=== PATIENT | male | born 1935 | race Caucasian/White ===

== ENCOUNTER → 2018-03-18 15:19 | Outpatient (CLI) | payer MEDICARE, SELFPAY ==
--- NOTE | 2018-03-18 | DI.RAD.S_ITS ---
PROCEDURE: XR CHEST 2V INDICATIONS: BRONCHITIS TECHNIQUE: 2 views of the chest were acquired. COMPARISON: [facility], MR, L-SPINE WITHOUT CONTRAST, 01/25/2012, 9:07. [facility], CT, CT CHEST WITHOUT CONTRAST, 08/29/2017, 14:25. [facility], CR, CHEST 2 VIEW, 10/04/2008, 8:12. [facility], CR, CHEST 2 VIEW, 08/25/2010, 10:05. [facility], CR, XR CHEST 2 VIEWS, 06/17/2017, 17:01. FINDINGS: Surgical changes and devices: None. Lungs and pleura: Left basilar opacities may be atelectasis or pneumonia. No pleural effusions or pneumothorax. Mediastinum: Mediastinal contours are normal. Heart size is normal. Bones and chest wall: No suspicious bony abnormalities. Soft tissues appear unremarkable. IMPRESSION: Left basilar opacities may be atelectasis or pneumonia. Recommend followup to resolution. Dictated by: Araceli Anton M.D. on 03/18/2018 at 16:48 Approved by: Araceli Anton M.D. on 03/18/2018 at 16:51
== END ==
PROVIDERS: PCP Family Medicine; Visit Provider Nurse Practitioner Family
DX: J40 Bronchitis, not specified as acute or chronic (principal)
CPT/HCPCS: 71046

== ENCOUNTER → 2018-04-10 09:34 | Outpatient (CLI) | payer MEDICARE, SELFPAY ==
--- NOTE | 2018-04-10 | DI.CT.S_ITS ---
PROCEDURE: CT CHEST WO CON INDICATIONS: FOLLOW UP LEFT LOWER LUNG NODULE TECHNIQUE: Noncontrast 2.0-2.5 mm thick sections acquired from the pulmonary apices to the posterior costophrenic angles. 7 mm thick coronal and sagittal MIP reformats were then acquired. A low radiation dose technique was utilized. COMPARISON: [facility], CT, CT CHEST WITHOUT CONTRAST, 08/29/2017, 14:25. FINDINGS: Image quality: Diagnostic, given the low radiation dose technique. Lungs and pleura: There is a Dorsey within it and in the left lower lobe, unchanged since the last exam. There is left basilar atelectasis. Mediastinum: Heart size is normal. No pericardial effusion. Moderate coronary artery and aortic calcifications consistent with atherosclerosis. No mediastinal adenopathy by size criteria. Small mediastinal lymph nodes are likely reactive. Thoracic aorta and central pulmonary arteries are normal in size. Esophagus is normal in caliber. No hiatal hernia. Bones and chest wall: No suspicious bony lesions. No vertebral body compression fractures. No axillary or supraclavicular adenopathy by size criteria. Thyroid gland is normal. Abdomen: There is a small 8 mm indeterminate hepatic hypodensity in the posterior segment of the right hepatic lobe, unchanged. Visualized upper abdomen solid organs and bowel loops appear normal in the absence of contrast. IMPRESSION: 1. Stable 4 mm left lower lobe lung nodule. 2. Stable 8 mm indeterminate hepatic hypodensity. Fleischner Society criteria for SOLID lung nodule followup. Nodule size (mm)Low-risk patientHigh-risk patient<6 (single or multiple)No routine followup.Optional CT at 12 months. 6-8 (single or multiple)CT at 6-12 months, then optional CT at 18-24 mo.CT at 6-12 months, then CT at 18-24 months. >8 (single)CT at 3 months, PET-CT, or biopsy. Same as for low-risk pts. >8 (multiple)CT at 3-6 months, then optional CT at 18-24 mo.CT at 3-6 months, then CT at 18-24 months. Recommendations do not apply to lung cancer screening, patients with immunosuppression, or patients with known primary cancer. Dictated by: Araceli Anton M.D. on 04/10/2018 at 10:06 Approved by: Araceli Anton M.D. on 04/10/2018 at 10:38
== END ==
PROVIDERS: PCP Internal Medicine; Visit Provider Nurse Practitioner Family
DX: R91.1 Solitary pulmonary nodule (principal); I25.10 Atherosclerotic heart disease of native coronary artery without angina pectoris; I70.0 Atherosclerosis of aorta
CPT/HCPCS: 71250

== ENCOUNTER → 2018-05-16 08:52 | Outpatient (CLI) | payer MEDICARE, SELFPAY ==
[2018-05-16 10:28] LABS: Alanine Aminotransferase 24 IU/L (21-72); Albumin 4.5 g/dL (3.5-5.0); Albumin Globulin Ratio 1.4 (1.0-2.8); Alkaline Phosphatase 60 U/L (38-126); Aspartate Aminotransferase 20 IU/L (17-59); BUN Creatinine Ratio 18.3 (6-22); Bilirubin Total 0.5 mg/dL (0.2-1.3); Blood Urea Nitrogen 22 mg/dL (9-20); Calcium 9.4 mg/dL (8.4-10.2); Carbon Dioxide 28 mmol/L (22-32); Chloride 99 mmol/L (98-107); Cholesterol 171 mg/dL (140-199); Estimated Glomerular Filt Rate 58.3 mL/min (>60); Globulin 3.2 g/dL (1.7-4.1); Glucose 106 mg/dL (80-110); HDL Cholesterol 44 mg/dL (40-60); HEMOLYSIS < 15 (0-50); Hemoglobin A1C% w Est Avg Glu 5.7 % (4.0-6.0); LDL Cholesterol Calculated 95 mg/dL (<100); Potassium 3.8 mmol/L (3.4-5.1); Sodium 140 mmol/L (137-145); Total Protein 7.7 g/dL (6.3-8.2); Triglycerides 161 mg/dL (35-150)
[2018-05-16 10:34] LABS: B Type Natriuretic Peptide 109 (<100)
[2018-05-16 11:40] LABS: Vitamin D 25 Hydroxy (D3) 53.3 ng/mL (30.0-100.0)
== END ==
PROVIDERS: PCP Internal Medicine; Visit Provider Nurse Practitioner Family
DX: E55.9 Vitamin D deficiency, unspecified (principal); E78.5 Hyperlipidemia, unspecified; I10 Essential (primary) hypertension; R73.01 Impaired fasting glucose; R06.00 Dyspnea, unspecified
CPT/HCPCS: 36415; 80053; 80061; 82306; 83036; 83880

== ENCOUNTER → 2018-06-30 14:34 | Outpatient (CLI) | payer MEDICARE, SELFPAY ==
--- NOTE | 2018-06-30 | DI.RAD.S_ITS ---
PROCEDURE: XR CHEST 2V INDICATIONS: COUGH,SOB TECHNIQUE: 2 views of the chest were acquired. COMPARISON: [facility], CR, XR CHEST 2V, 03/18/2018, 15:33. FINDINGS: Surgical changes and devices: None. Lungs and pleura: Interval decrease in strand-like density in the retrocardiac region.. No pleural effusions or pneumothorax. Mediastinum: Mediastinal contours are normal. Heart size is normal. Bones and chest wall: No suspicious bony abnormalities. Soft tissues appear unremarkable. IMPRESSION: Interval improvement in the left medial lung base the strand-like density suggesting resolution of pneumonia and/or atelectasis. Dictated by: Niyah Jackson M.D. on 06/30/2018 at 15:36 Approved by: Niyah Jackson M.D. on 06/30/2018 at 15:38
== END ==
PROVIDERS: PCP Internal Medicine; Visit Provider Internal Medicine
DX: R05 Cough (principal); R06.02 Shortness of breath
CPT/HCPCS: 71046

== ENCOUNTER → 2018-08-12 10:38 | Outpatient (CLI) | payer MEDICARE, SELFPAY ==
--- NOTE | 2018-08-12 10:40 | DI.RAD.S_ITS ---
PROCEDURE: XR CHEST 2V INDICATIONS: COUGH TECHNIQUE: 2 views of the chest were acquired. COMPARISON: [facility], CR, XR CHEST 2V, 06/30/2018, 14:38. FINDINGS: Surgical changes and devices: None. Lungs and pleura: Lungs are clear. No pleural effusions or pneumothorax. Mediastinum: Mediastinal contours are normal. Heart size is normal. Bones and chest wall: No suspicious bony abnormalities. Soft tissues appear unremarkable. IMPRESSION: No acute disease Dictated by: Stephen Wright M.D. on 08/12/2018 at 12:24 Approved by: Stephen Wright M.D. on 08/12/2018 at 12:25
== END ==
PROVIDERS: PCP Internal Medicine; Visit Provider Internal Medicine
DX: R05 Cough (principal)
CPT/HCPCS: 71046

== ENCOUNTER → 2018-12-22 07:43 | Outpatient (CLI) | payer MEDICARE, SELFPAY ==
--- NOTE | 2018-12-22 09:00 | PM.TREADMILL ---
Cardiac Stress Test Report Referral & Results Date Patient Seen: 12/22/18 Requesting provider: Lai Joy Indication: Chest discomfort Rest ECG: Unremarkable Procedure Note: Today following both written and verbal informed consent the patient was exercised according to a standard Derian protocol patient went for a total of 3 minutes 37 seconds, all at Derian protocol stage I, achieving a maximum heart rate of 114 maximum systolic blood pressure of 160. This is approximately 4.6 METS. Exercise was terminated at this point because of chest pain and targets were met. Patient was also given Cardiolite through a previously started Hep-Lock IV by the diagnostic imaging staff approximately 1 minute prior to the cessation of exercise. With exercise patient did have some upsloping ST segment depression in leads V5 and V6 as well as some drooping or slightly upsloping ST segment changes in leads II, III, and aVf. Later in recovery the ST segments in leads V5 V6 became clearly downsloping as did the leads II, III, and aVf. Patient's exercise capacity difficult to ascertain as he is older than the usual scale but appears to be approximately 30% impaired on the sedentary scale Blood pressure dropped in recovery but remained stable at 1 20/80 or so Patient had rare PACs as well Impression: Ischemic changes as above. Perfusion imaging report will be separate Please note: Actual ECG tracings can be found in the PACS system.
--- NOTE | 2018-12-23 15:16 | DI.NM.S_ITS ---
DATE OF SERVICE: 12/22/2018 PROCEDURE PERFORMED: Exercise treadmill stress and rest myocardial perfusion imaging study with gating to assess ejection fraction and regional wall motion. ORDERING PROVIDER: Lai Joy MD INDICATIONS: The patient is an 83-year-old male with exertional chest pain. EXERCISE TREADMILL TESTING: The patient was able to exercise for a total of 3 minutes 37 seconds on a standard Derian protocol suggesting moderate-severely reduced exercise capacity with an LAURA of +30% on the sedentary scale. He had a slightly blunted heart rate response to exercise, achieving a maximum heart rate of 114 bpm (82% of his predicted maximum). He had a normal blood pressure response. He developed 5/10 chest discomfort with exercise requiring him to stop. His resting ECG shows mild nonspecific ST-segment depressions which become accentuated with stress, initially upsloping then becoming flat and ultimately downsloping in late recovery of around 1-2 mm. There were no arrhythmias. At 2 minutes 48 seconds of exercise, at heart rate of 114 bpm, 26.9 mCi of technetium-99 Myoview was injected, and the patient was imaged 15 minutes later using a gated SPECT acquisition protocol. He returned the following day and was reinjected with an additional 25.2 mCi of technetium-99 Myoview and was imaged 30 minutes later, again using a gated SPECT acquisition protocol. FINDINGS: 1. Raw Data: There is fair myocardial tracer uptake. There is increased lung uptake relative to myocardial uptake with a lung/heart ratio of 0.51, which can be a sign of pulmonary congestion, possibly reflecting multivessel disease. In addition, the TID ratio is mildly elevated at 1.22 with visual confirmation of post stress dilatation compared to the resting images. 2. Quantitative Gated SPECT: Post stress ejection fraction is estimated at 53% with mild global hypokinesis but more significant in the [id number] anterior wall and apex as well as the mid and distal inferolateral wall. The resting ejection fraction is 63% with significant improvement in both areas of hypokinesis. The resting end-diastolic volume is 123 mL. 3. Myocardial Perfusion Imaging: Post stress supine images show a severe perfusion defect of the mid and distal inferolateral wall and inferior wall extending out to the apex which persists on the prone images. This defect significantly improves on the resting images, although a small perfusion defect persists in the distal portion of the inferolateral wall and apex. In addition, there is a moderate perfusion defect involving the mid and distal anterior wall and septum, more severe distally, which again, persists on the prone images This defect also improves but does not completely resolve on the resting images which show a significant perfusion defect only in the distal anterior wall and apex and periapical segments. IMPRESSION: 1. Abnormal myocardial perfusion study. 2. Kermwzrm-je-xgxzp predominately reversible mid and distal anterior, septal, and anteroapical perfusion defect and a more completely reversible mid and distal inferior defect that is partially fixed distally and at the apex. 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 3. Mildly reduced left ventricular systolic function with mildly reversible wall motion abnormalities in the distributions described above, consistent with significant ischemia. The increased lung/heart ratio and elevated TID support a probable global ischemia. 4. Moderate-severely reduced exercise capacity with angina and moderate ST- segment shifts consistent with ischemia. Dr. Joy was contacted with these results. Ryan Arguelles - YOLA/yaz/ doc#: [id number]/job#: [id number] dd: 12/23/2018 12:37:00 dt: 12/23/2018 14:56:00 DICTATING MD/COPIES TO: Boby Uriarte MD COPIES MNE: MONO
== END ==
PROVIDERS: PCP Internal Medicine; Visit Provider Internal Medicine
DX: R07.89 Other chest pain (principal); R94.39 Abnormal result of other cardiovascular function study; I20.8 Other forms of angina pectoris
CPT/HCPCS: 78452; 93016; 93017; 93018; A9502

== ENCOUNTER → 2019-10-14 09:39 | Outpatient (CLI) | payer MEDICARE, SELFPAY ==
[2019-10-14 11:22] LABS: Add Manual Diff / Slide Review NO; Basophils Absolute Auto 100 /uL (0-100); Basophils Percent Auto 0.7 % (0-2); Eosinophils Absolute Auto 700 /uL (0-450); Eosinophils Percent Auto 7.2 % (2-4); Lymphocytes Absolute Auto 1700 /uL (1100-4500); Mean Corpuscular HGB Conc 35.1 % (30-36); Mean Corpuscular Hemoglobin 30.7 PG (26-34); Mean Corpuscular Volume 87.3 fL (80-100); Monocytes Absolute Auto 1100 /uL (0-900); Monocytes Percent Auto 10.9 % (3-14); Neutrophils Absolute Auto 6500 /uL (1500-7000); Neutrophils Percent Auto 64.2 % (50-75); Platelet Count 224 X10^3/uL (150-400); Red Blood Cell Count 4.24 X10^6/uL (4.5-5.9); Red Cell Distribution Width 13.3 % (11.6-14.8); White Blood Cell Count 10.2 X10^3/uL (4.5-11.0)
[2019-10-14 11:55] LABS: Alanine Aminotransferase 25 IU/L (<50); Albumin 4.6 g/dL (3.5-5.0); Albumin Globulin Ratio 1.5 (1.0-2.8); Alkaline Phosphatase 75 U/L (38-126); Aspartate Aminotransferase 26 IU/L (17-59); Blood Urea Nitrogen 22 mg/dL (9-20); Calcium 9.2 mg/dL (8.4-10.2); Carbon Dioxide 25 mmol/L (22-32); Chloride 100 mmol/L (98-107); Cholesterol 132 mg/dL (140-199); Estimated Glomerular Filt Rate 45.9 mL/min (>60); Glucose 96 mg/dL (80-110); HDL Cholesterol 40 mg/dL (40-60); HEMOLYSIS < 15 (0-50); LDL Cholesterol Calculated 65 mg/dL (<100); Potassium 4.4 mmol/L (3.4-5.1); Sodium 136 mmol/L (137-145); Total Protein 7.6 g/dL (6.3-8.2); Triglycerides 133 mg/dL (35-150)
== END ==
PROVIDERS: PCP Internal Medicine; Referring Provider Internal Medicine; Visit Provider Internal Medicine
DX: I10 Essential (primary) hypertension (principal); E78.2 Mixed hyperlipidemia; J30.1 Allergic rhinitis due to pollen
CPT/HCPCS: 36415; 80053; 80061; 85025

== ENCOUNTER → 2019-12-11 08:35 | Outpatient (CLI) | payer MEDICARE, SELFPAY ==
[2019-12-11 09:58] LABS: Add Manual Diff / Slide Review NO; Basophils Absolute Auto 100 /uL (0-100); Basophils Percent Auto 0.8 % (0-2); Eosinophils Absolute Auto 600 /uL (0-450); Eosinophils Percent Auto 6.8 % (2-4); Hematocrit 36.9 % (41-53); Hemoglobin 12.7 g/dL (13.5-17.5); Lymphocytes Absolute Auto 1700 /uL (1100-4500); Lymphocytes Percent Auto 18.2 % (25-40); Mean Corpuscular HGB Conc 34.5 % (30-36); Mean Corpuscular Hemoglobin 30.4 PG (26-34); Monocytes Absolute Auto 900 /uL (0-900); Monocytes Percent Auto 9.2 % (3-14); Neutrophils Absolute Auto 6000 /uL (1500-7000); Platelet Count 249 X10^3/uL (150-400); Red Blood Cell Count 4.19 X10^6/uL (4.5-5.9); Red Cell Distribution Width 12.8 % (11.6-14.8); White Blood Cell Count 9.3 X10^3/uL (4.5-11.0)
[2019-12-11 10:15] LABS: HEMOLYSIS < 15 (0-50); Iron 91 ug/dL (49-181)
[2019-12-11 10:19] LABS: BUN Creatinine Ratio 21.5 (6-22); Blood Urea Nitrogen 29 mg/dL (9-20); Calcium 9.3 mg/dL (8.4-10.2); Carbon Dioxide 29 mmol/L (22-32); Chloride 102 mmol/L (98-107); Estimated Glomerular Filt Rate 50.6 mL/min (>60); Glucose 96 mg/dL (80-110); HEMOLYSIS < 15 (0-50); Potassium 4.8 mmol/L (3.4-5.1); Sodium 137 mmol/L (137-145)
[2019-12-11 10:26] LABS: Percent Iron Saturation 25 % (20-50); Total Iron Binding Capacity 369 ug/dL (261-462); Transferrin 289 mg/dL (206-381)
== END ==
PROVIDERS: PCP Internal Medicine; Referring Provider Internal Medicine; Visit Provider Internal Medicine
DX: I10 Essential (primary) hypertension (principal)
CPT/HCPCS: 36415; 80048; 83540; 83550; 85025

== ENCOUNTER → 2022-04-13 11:19 | Outpatient (CLI) | payer MEDICARE, SELFPAY ==
--- NOTE | 2022-04-13 | DI.RAD.S_ITS ---
PROCEDURE: XR LUMBAR SPINE 2-3V INDICATIONS: LOW BACK PAIN TECHNIQUE: 3 views of the lumbar spine were acquired. COMPARISON: None. FINDINGS: Bones: 5 [id number] vertebrae are present. No vertebral body compression fractures. No suspicious bony lesions. Generalized decrease in osseous mineralization noted. Disc space narrowing and sclerotic facet joints present throughout the exam, particularly in the lower lumbar spine, resulting in grade 1 anterior spondylolisthesis at L4-5. Soft tissues: Calcified atherosclerosis in the aorta associated with 4.6 cm abdominal aortic aneurysm IMPRESSION: Infrarenal abdominal aortic aneurysm should be further evaluated with CT abdomen and pelvis with contrast. Multilevel degenerative disc disease and arthropathy Approved by: Sandeep Mendosa M.D. on 04/13/2022 at 16:37
== END ==
PROVIDERS: PCP Student in an Organized Health Care Education/Training Program; Referring Provider Student in an Organized Health Care Education/Training Program; Visit Provider Student in an Organized Health Care Education/Training Program
DX: I71.43 Infrarenal abdominal aortic aneurysm, without rupture (principal); M47.816 Spondylosis without myelopathy or radiculopathy, lumbar region; M51.36 Other intervertebral disc degeneration, lumbar region; M54.50 Low back pain, unspecified; G89.29 Other chronic pain; Z98.890 Other specified postprocedural states
CPT/HCPCS: 72100

== ENCOUNTER → 2022-04-20 08:34 | Outpatient (CLI) | payer OTHER, MEDICARE, SELFPAY ==
--- NOTE | 2022-04-20 | DI.CT.S_ITS ---
PROCEDURE: CT ABDOMEN PELVIS W CON INDICATIONS: Infrarenal abdominal aortic aneurysm, without rupture TECHNIQUE: After the administration of intravenous contrast, axial sections acquired from the lung bases to the pubic symphysis. Coronal and sagittal reformats were performed. For radiation dose reduction, the following was used: automated exposure control, adjustment of mA and/or kV according to patient size. COMPARISON: [facility], CT, CT CHEST ABDOMEN PELVIS WITH CONTRAST, 08/16/2016, 12:33. [facility], CR, XR LUMBAR SPINE 2-3V, 04/13/2022, 12:28. FINDINGS: Image quality: Adequate Lung bases: No pleural effusion ABDOMEN: Liver: Redemonstrated small hypodensity at segment 5/6, nonspecific, possible cyst or hemangioma. Gallbladder: Unremarkable. Biliary ducts: Unremarkable. Pancreas: Unremarkable. Spleen: Unremarkable. Adrenal Glands: Unremarkable. Kidneys and Ureters: No hydronephrosis. Cortical scarring at the mid right kidney as before. Stomach and Bowel: No bowel obstruction. Mild predominantly sigmoid colonic diverticulosis without evidence of acute diverticulitis. Peritoneum: No abnormal intraperitoneal fluid. No free air. Abdominal Nodes: No retroperitoneal or mesenteric adenopathy by size criteria. Vessels: Fusiform infrarenal abdominal aortic aneurysm measuring up to 3.4 centimeters, without extension into the iliac arteries. Previously the aorta measured 3.1 centimeters remeasured similarly on the 2017 exam. PELVIS: Pelvic Organs: Prostate gland and seminal vesicles not visualized, may be surgically absent Bladder: Unremarkable. Pelvic Nodes: No enlarged lymph nodes. Bones: Multilevel degenerative change of the visualized spine. IMPRESSION: Infrarenal abdominal aortic aneurysm measuring up to 3.4 centimeters, slightly increased since 2017. Dictated by: Catrachito Villegas M.D. on 04/20/2022 at 9:04 Approved by: Catrachito Villegas M.D. on 04/20/2022 at 9:32
== END ==
PROVIDERS: PCP Student in an Organized Health Care Education/Training Program; Referring Provider Student in an Organized Health Care Education/Training Program; Visit Provider Student in an Organized Health Care Education/Training Program
DX: I71.43 Infrarenal abdominal aortic aneurysm, without rupture (principal); K57.20 Diverticulitis of large intestine with perforation and abscess without bleeding
CPT/HCPCS: 74177; Q9967

== ENCOUNTER → 2023-07-04 16:33 | Outpatient (CLI) | payer MEDICARE, SELFPAY ==
--- NOTE | 2023-07-04 16:36 | DI.RAD.S_ITS ---
PROCEDURE: XR CERVICAL SPINE 2V OR 3V INDICATIONS: neck pain TECHNIQUE: 3 view(s) of the cervical spine were acquired. COMPARISON: None. FINDINGS: Bones: No fractures or dislocations to the T1 level. The lateral masses of C1 appear intact on the odontoid view. No suspicious bony lesions. Prominent multilevel bilateral cervical facet arthropathy. Soft tissues: No prevertebral soft tissue swelling. IMPRESSION: 1. No acute cervical fracture or dislocation. 2. Prominent multilevel bilateral cervical facet arthropathy. Dictated by: Wil Grimes M.D. on 07/04/2023 at 17:16 Approved by: Wil Grimes M.D. on 07/04/2023 at 17:17
== END ==
PROVIDERS: PCP Student in an Organized Health Care Education/Training Program; Referring Provider Student in an Organized Health Care Education/Training Program; Visit Provider Student in an Organized Health Care Education/Training Program
DX: M47.812 Spondylosis without myelopathy or radiculopathy, cervical region (principal); M54.2 Cervicalgia
CPT/HCPCS: 72040

== ENCOUNTER → 2023-09-13 15:52 | Outpatient (CLI) | payer MEDICARE, SELFPAY | PROVIDERS: PCP Student in an Organized Health Care Education/Training Program; Visit Provider Registered Nurse | DX: R30.0 Dysuria (principal) | CPT/HCPCS: 87086 ==

== ENCOUNTER 2023-10-12 10:28 | Emergency (ER) | payer MEDICARE, SELFPAY ==
[2023-10-12] VITALS (25 sets, daily range): BP systolic 147–201; BP diastolic 68–143; PULSE 50–76; RESP 13–37; TEMP 36.6; O2SAT 91–98; BMI 29.7
--- NOTE | 2023-10-12 10:37 | DI.RAD.S_ITS ---
PROCEDURE: XR CHEST 1V INDICATIONS: chest pain TECHNIQUE: One view of the chest was acquired. COMPARISON: None. FINDINGS: Surgical changes and devices: None. Lungs and pleura: Lungs are clear. No pleural effusions or pneumothorax. Mediastinum: Mediastinal contours appear normal. Heart size is normal. Bones and chest wall: No suspicious bony lesions. Overlying soft tissues appear unremarkable. IMPRESSION: No acute cardiopulmonary abnormality is seen. Approved by: Sandeep Mendosa M.D. on 10/12/2023 at 11:29
--- NOTE | 2023-10-12 10:45 | EKG_ITS ---
[facility] [address] [place] [address] Test Date: 2023-10-12 Pat Name: Ryan Arguelles Department: Room: Gender: Male Small Stock Facer: : 1935 Requested By: Order Number: [id number] Reading MD: Aakash Durand MD Measurements Intervals Hodges Rate: 59 P: 18 NJ: 210 QRS: 18 QRSD: 134 T: 0 QT: 472 QTc: 467 Interpretive Statements Sinus bradycardia with 1st degree AV block Right bundle branch block (new) Electronically Signed On 10-12-2023 12:06:37 PDT by Aakash Durand MD
[2023-10-12 10:49] LABS: Add Manual Diff / Slide Review NO; Basophils Absolute Auto 100 /uL (0-100); Basophils Percent Auto 0.8 % (0-2); Eosinophils Absolute Auto 600 /uL (0-450); Eosinophils Percent Auto 6.7 % (2-4); Hematocrit 41.4 % (41-53); Hemoglobin 14.5 g/dL (13.5-17.5); Lymphocytes Absolute Auto 1900 /uL (1100-4500); Lymphocytes Percent Auto 20.8 % (25-40); Mean Corpuscular HGB Conc 34.9 % (30-36); Mean Corpuscular Volume 88.9 fL (80-100); Monocytes Absolute Auto 900 /uL (0-900); Monocytes Percent Auto 9.4 % (3-14); Neutrophils Absolute Auto 5700 /uL (1500-7000); Neutrophils Percent Auto 62.3 % (50-75); Platelet Count 206 X10^3/uL (150-400); Red Blood Cell Count 4.66 X10^6/uL (4.5-5.9); Red Cell Distribution Width 12.6 % (11.6-14.8); White Blood Cell Count 9.2 X10^3/uL (4.5-11.0)
[2023-10-12 10:56] LABS: INR 1.1 (0.9-1.3); Prothrombin Time 12.3 SECONDS (9.4-12.5)
[2023-10-12 10:58] LABS: PTT Partial Thromboplastin Tim 36 SECONDS (25.1-36.5)
[2023-10-12 11:00] LABS: Alanine Aminotransferase 24 IU/L (<50); Albumin 4.8 g/dL (3.5-5.0); Albumin Globulin Ratio 1.5 (1.0-2.8); Alkaline Phosphatase 52 U/L (38-126); Aspartate Aminotransferase 26 IU/L (17-59); Bilirubin Total 1.3 mg/dL (0.2-1.3); Blood Urea Nitrogen 21 mg/dL (9-20); Calcium 9.7 mg/dL (8.4-10.2); Carbon Dioxide 23 mmol/L (22-32); Chloride 103 mmol/L (98-107); Creatine Kinase 49 U/L (55-170); Estimated Glomerular Filt Rate 53 mL/min (>60); Globulin 3.1 g/dL (1.7-4.1); Glucose 110 mg/dL (80-110); HEMOLYSIS < 15 (0-50); Lipase 30 U/L (23-300); Potassium 4.8 mmol/L (3.4-5.1); Sodium 137 mmol/L (137-145); Total Protein 7.9 g/dL (6.3-8.2)
[2023-10-12 11:11] LABS: NT-proBNP (BNP-Adult 18+) 186 pg/mL (<450); Troponin I < 0.012 ng/mL (0.01-0.034)
--- NOTE | 2023-10-12 11:43 | ED.GENADULT ---
HPI - General Adult General Chief complaint: Hypertension Stated complaint: wants vitals checked high bp low pulse Time Seen by Provider: 10/12/23 11:41 Source: patient Mode of arrival: Ambulatory History of Present Illness HPI narrative: 88-year-old male with history of hypertension, had previously been taking atenolol, switched to metoprolol long-acting 50 mg, about 1 year ago that metoprolol XL dose increased from once a day to twice a day, no other dose changes, no other new medications, feels recent days that he has a slower heart rate in the 50s and he is use to, no chest pain or shortness of breath, generalized malaise. No fevers or chills. No dysuria or frequency of urination. He denies back pain, chest pain, headache, photophobia, neck pain, abdominal pain, pelvic pain, flank pain, extremity pain. Related Data Home Medications Medication Instructions Recorded Confirmed ASPIRIN (Aspirin Low Dose) 81 mg PO Q DAY ##0 11/19/06 ATENOLOL (Tenormin) 25 mg PO Q DAY ##0 11/19/06 Atorvastatin Calcium (Lipitor) mg PO Q DAY ##0 11/19/06 ESCITALOPRAM OXALATE (Lexapro) 10 mg PO Q DAY ##0 11/19/06 HYDROCHLOROTHIAZIDE (Hydrodiuril / 25 mg PO Q DAY ##0 11/19/06 Hctz) [GLUCOSAMINE] 750 mg PO QDAY ##0 11/19/06 [SAW PALMETTO] 320 mg PO QDAY ##0 11/19/06 citalopram 10 mg tablet 10 mg PO DAILY 09/13/23 09/13/23 fluticasone propionate 230 2 puff inhalation BID 09/13/23 09/13/23 mcg-salmeterol 21 mcg/actuation HFA inhaler (Advair HFA) losartan 50 mg tablet 50 mg PO DAILY 09/13/23 09/13/23 metoprolol succinate 50 mg 50 mg PO BID 09/13/23 09/13/23 tablet,extended release 24 hr omeprazole 20 mg capsule,delayed 20 mg PO DAILY 09/13/23 09/13/23 release Allergies Allergy/AdvReac Type Severity Reaction Status Date / Time No Known Drug Allergies Allergy Verified 10/12/23 10:37 Review of Systems Review of Systems Narrative: see HPI Patient History Social History Smoking Status: Unknown if ever smoked Smoking Status: Unknown if ever smoked alcohol intake frequency: 0-2 drinks per day Substance Use Type: does not use Exam Narrative Exam Narrative: GENERAL: Well-developed patient, in mild distress. HEAD: Atraumatic. Normocephalic. EYES: Pupils equal round and reactive. Extraocular motions intact. No scleral icterus. No injection or drainage. ENT: Nose without bleeding, purulent drainage. Throat without erythema, tonsillar hypertrophy or exudate. Airway patent. NECK: Trachea midline. Non tender CARDIOVASCULAR: Regular rate and rhythm without murmurs, gallops, or rubs. RESPIRATORY: Clear to auscultation. Breath sounds equal bilaterally. No wheezes, rales, or rhonchi. GASTROINTESTINAL: Abdomen soft, non-tender, nondistended. EXTREMITIES: No edema or joint tenderness. BACK: Nontender without deformity or crepitance. No flank tenderness. NEURO: AOx3. Grossly nonfocal motor functions SKIN: No rash or erythema of visible areas Initial Vital Signs Initial Vital Signs: Vital Signs Temperature 97.9 F 10/12/23 10:30 Pulse Rate 58 L 10/12/23 10:30 Respiratory Rate 14 10/12/23 10:30 Blood Pressure 182/81 H 10/12/23 10:30 Pulse Oximetry 96 10/12/23 10:30 Oxygen Delivery Method Room Air 10/12/23 10:30 Course Orders Ordered: ED Orders 10/12/23 10:37 XR chest 1V Stat EKG-12 Lead Stat 10/12/23 10:40 Complete Blood Count AUTO DIFF Stat Comprehensive Metabolic Panel Stat Lipase Stat Magnesium Stat NT-proBNP (BNP-Adult 18+) Stat PTT Partial Thromboplastin Raymundo Stat Prothrombin Time INR Stat Troponin & CK Cardiac Panel Stat 10/12/23 12:00 Urinalysis and Microscopic Stat 10/12/23 12:34 Trop I [Troponin I] Stat 10/12/23 13:30 CT head/brain wo con Stat EKG-12 Lead Stat Vital Signs Vital signs: Vital Signs - 8 hr 10/12/23 10:30 10/12/23 10:35 10/12/23 10:35 Temperature 97.9 F Pulse Rate 58 L 61 Respiratory Rate 14 Blood Pressure 182/81 H 182/81 H Pulse Oximetry 96 94 Oxygen Delivery Method Room Air 10/12/23 11:00 10/12/23 11:01 10/12/23 11:01 Temperature Pulse Rate 56 L 56 L Respiratory Rate 23 16 Blood Pressure 154/73 H Pulse Oximetry 94 95 Oxygen Delivery Method 10/12/23 11:30 10/12/23 11:30 10/12/23 12:00 Temperature Pulse Rate 56 L 59 L Respiratory Rate 15 29 H Blood Pressure 163/72 H Pulse Oximetry 94 95 Oxygen Delivery Method 10/12/23 12:01 10/12/23 12:01 10/12/23 12:06 Temperature Pulse Rate 69 Respiratory Rate 37 H Blood Pressure 201/143 H 188/83 H Pulse Oximetry Oxygen Delivery Method 10/12/23 12:06 10/12/23 12:30 10/12/23 12:31 Temperature Pulse Rate 54 L 53 L 52 L Respiratory Rate 28 H 19 16 Blood Pressure Pulse Oximetry 94 94 93 Oxygen Delivery Method 10/12/23 12:31 10/12/23 13:00 10/12/23 13:00 Temperature Pulse Rate 51 L Respiratory Rate 13 Blood Pressure 150/69 H 147/68 H Pulse Oximetry 92 Oxygen Delivery Method 10/12/23 13:30 10/12/23 13:31 10/12/23 13:31 Temperature Pulse Rate 54 L 54 L Respiratory Rate 23 24 Blood Pressure 198/86 H Pulse Oximetry 98 97 Oxygen Delivery Method 10/12/23 14:00 Temperature Pulse Rate 51 L Respiratory Rate 14 Blood Pressure Pulse Oximetry 98 Oxygen Delivery Method Medical Decision Making Lab Data Lab results reviewed: Yes I reviewed the patient's lab results. 10/12/23 10:40 10/12/23 10:40 Labs: Lab Results 10/12/23 10/12/23 10/12/23 Range/Units 10:40 12:00 12:34 WBC 9.2 (4.5-11.0) X10^3/uL RBC 4.66 (4.5-5.9) X10^6/uL Hgb 14.5 (13.5-17.5) g/dL Hct 41.4 (41-53) % MCV 88.9 (80-100) fL MCH 31.0 (26-34) PG MCHC 34.9 (30-36) % RDW 12.6 (11.6-14.8) % Plt Count 206 (150-400) X10^3/uL Neut % (Auto) 62.3 (50-75) % Lymph % (Auto) 20.8 L (25-40) % [place] % (Auto) 9.4 (3-14) % Eos % (Auto) 6.7 H (2-4) % Baso % (Auto) 0.8 (0-2) % Neut # (Auto) 5700 (6431-6685) /uL Lymph # (Auto) 1900 (3866-9107) /uL [place] # (Auto) 900 (0-900) /uL Eos # (Auto) 600 H (0-450) /uL Baso # (Auto) 100 (0-100) /uL PT 12.3 (9.4-12.5) SECONDS INR 1.1 (0.9-1.3) APTT 36 (25.1-36.5) SECONDS D-Dimer (<500) ng/ml Sodium 137 (137-145) mmol/L Potassium 4.8 (3.4-5.1) mmol/L Chloride 103 (98-107) mmol/L Carbon Dioxide 23 (22-32) mmol/L BUN 21 H (9-20) mg/dL Creatinine 1.31 H (0.66-1.25) mg/dL Estimated GFR 53 L (>60) mL/min BUN/Creatinine Ratio 16.0 (6-22) Glucose 110 (80-110) mg/dL Calcium 9.7 (8.4-10.2) mg/dL Magnesium 2.0 (1.6-2.3) mg/dL Total Bilirubin 1.3 (0.2-1.3) mg/dL AST 26 (17-59) IU/L ALT 24 (<50) IU/L Alkaline Phosphatase 52 (38-126) U/L Total Creatine Kinase 49 L (55-170) U/L Troponin I < 0.012 < 0.012 (0.01-0.034) ng/mL NT-Pro-B Natriuret Pep 186 (<450) pg/mL Total Protein 7.9 (6.3-8.2) g/dL Albumin 4.8 (3.5-5.0) g/dL Globulin 3.1 (1.7-4.1) g/dL Albumin/Globulin Ratio 1.5 (1.0-2.8) Lipase 30 (23-300) U/L Urine Color Yellow Urine Appearance Clear Urine pH 7.0 (4.5-8.0) Ur Specific [place] 1.010 (1.000-1.035) Urine Protein Negative (Negative) Urine Glucose (UA) Negative (Negative) g/dL Urine Ketones Negative (NEGATIVE) Urine Occult Blood Negative (Negative) Urine Nitrate Negative (Negative) Urine Bilirubin Negative (NEGATIVE) Urine Urobilinogen 1.0 (0.2) E.U./dL Ur Leukocyte Esterase Negative (NEGATIVE) Urine RBC None seen (0-5/HPF) Urine WBC None seen (0-5/HPF) Ur Squamous Epith Cells None seen (0-5/HPF) Urine Bacteria None seen (None) Ur Culture Indicated? Cult not indicated Vol Urine Centrifuged 10ml (spun) 10/12/23 10/12/23 Range/Units 15:43 17:01 WBC (4.5-11.0) X10^3/uL RBC (4.5-5.9) X10^6/uL Hgb (13.5-17.5) g/dL Hct (41-53) % MCV (80-100) fL MCH (26-34) PG MCHC (30-36) % RDW (11.6-14.8) % Plt Count (150-400) X10^3/uL Neut % (Auto) (50-75) % Lymph % (Auto) (25-40) % [place] % (Auto) (3-14) % Eos % (Auto) (2-4) % Baso % (Auto) (0-2) % Neut # (Auto) (6420-8966) /uL Lymph # (Auto) (0257-5340) /uL [place] # (Auto) (0-900) /uL Eos # (Auto) (0-450) /uL Baso # (Auto) (0-100) /uL PT (9.4-12.5) SECONDS INR (0.9-1.3) APTT (25.1-36.5) SECONDS D-Dimer 360 (<500) ng/ml Sodium (137-145) mmol/L Potassium (3.4-5.1) mmol/L Chloride (98-107) mmol/L Carbon Dioxide (22-32) mmol/L BUN (9-20) mg/dL Creatinine (0.66-1.25) mg/dL Estimated GFR (>60) mL/min BUN/Creatinine Ratio (6-22) Glucose (80-110) mg/dL Calcium (8.4-10.2) mg/dL Magnesium (1.6-2.3) mg/dL Total Bilirubin (0.2-1.3) mg/dL AST (17-59) IU/L ALT (<50) IU/L Alkaline Phosphatase (38-126) U/L Total Creatine Kinase (55-170) U/L Troponin I < 0.012 (0.01-0.034) ng/mL NT-Pro-B Natriuret Pep (<450) pg/mL Total Protein (6.3-8.2) g/dL Albumin (3.5-5.0) g/dL Globulin (1.7-4.1) g/dL Albumin/Globulin Ratio (1.0-2.8) Lipase (23-300) U/L Urine Color Urine Appearance Urine pH (4.5-8.0) Ur Specific [place] (1.000-1.035) Urine Protein (Negative) Urine Glucose (UA) (Negative) g/dL Urine Ketones (NEGATIVE) Urine Occult Blood (Negative) Urine Nitrate (Negative) Urine Bilirubin (NEGATIVE) Urine Urobilinogen (0.2) E.U./dL Ur Leukocyte Esterase (NEGATIVE) Urine RBC (0-5/HPF) Urine WBC (0-5/HPF) Ur Squamous Epith Cells (0-5/HPF) Urine Bacteria (None) Ur Culture Indicated? Vol Urine Centrifuged Imaging Data CT scan - head: Radiologist's Impression: [place] [address] CT Scan Report Signed Patient: Ryan Arguelles MR#: [id number] : 1935 Acct:[id number] Age/Sex: 88 / M Date of Service: 10/12/23 Loc: ED Accession Number: [id number] Procedure: CT head/brain wo con Ordering Provider: Javier Garcia MD PROCEDURE: CT HEAD/BRAIN WO CON INDICATIONS: feels like he is going to pass out TECHNIQUE: Noncontrast 4.5 mm thick angled axial sections acquired from the foramen magnum to the vertex, with coronal and sagittal reformats. For radiation dose reduction, the following was used: automated exposure control, adjustment of mA and/or kV according to patient size. COMPARISON: None. FINDINGS: Image quality: Diagnostic. CSF spaces: Basal cisterns are patent. No extra-axial fluid collections. Ventricles are normal in size and shape. Brain: No midline shift. No intracranial masses or hemorrhage. Salgado-white matter interface is normal. Dense atherosclerotic vascular calcification in the cavernous segments of both internal carotid arteries. 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 Sinuses: Visualized sinuses and mastoids are clear. IMPRESSION: Moderate atrophy and white matter chronic ischemic change intracranial hemorrhage or mass effect Approved by: Sandeep Mendosa M.D. on 10/12/2023 at 13:39 Chest x-ray: Radiologist's Impression: [address] [address] XRay Report Signed Patient: Ryan Arguelles MR#: [id number] : 1935 Acct:[id number] Age/Sex: 88 / M Date of Service: 10/12/23 Loc: ED Accession Number: [id number] Procedure: XR chest 1V Ordering Provider: Javier Garcia MD PROCEDURE: XR CHEST 1V INDICATIONS: chest pain TECHNIQUE: One view of the chest was acquired. COMPARISON: None. FINDINGS: Surgical changes and devices: None. Lungs and pleura: Lungs are clear. No pleural effusions or pneumothorax. Mediastinum: Mediastinal contours appear normal. Heart size is normal. Bones and chest wall: No suspicious bony lesions. Overlying soft tissues appear unremarkable. IMPRESSION: No acute cardiopulmonary abnormality is seen. Approved by: Sandeep Mendosa M.D. on 10/12/2023 at 11:29 ECG Data Attestation: I personally reviewed and interpreted this ECG as follows: Interpretation: 1045 study, Sinus bradycardia with rate of 59, no obvious ST segment elevation or depression changes. First-degree AV block. Right bundle branch block pattern noted. IA 210, QRS 134, QTC 467. 1334 study, sinus bradycardia with rate of 54, no obvious ST segment elevation or depression changes. Right bundle branch block changes again seen. No significant change from prior study this visit. IA 200, QRS 130, QTC 466. MDM Narrative Medical decision making narrative: 88-year-old male with generalized fatigue, noticed on metoprolol 50 mg XL twice daily dosing that he has heart rate in the 50s, it is not usually that low, no recent dose changes, no nausea or vomiting, no chest pain or abdominal pain, afebrile, sirs screen negative. Heart rate 50s noted on EKG and monitor car operator, no obvious ischemic change, initial troponin negative. We will check interval troponin. Chest x-ray without obvious infiltrates or CHF changes to my view, await radiologist's over reading. Renal function normal, LFTs unremarkable, we will check urinalysis as well. Provisionally we discussed holding the evening dose of his metoprolol to see if his heart rate improves, and to see if his malaise improves, to then contact his chemist intern early next week for further dose/medication regimen follow up recommendations. Urinalysis and interval repeat troponin pending at this time 1330, awaiting 2nd troponin patient developed new chest pain, had not been having chest pain, repeat EKG Repeat EKG unchanged. Repeat troponin held due to new chest pain, we will obtain 2nd troponin now in 2 hours. No further chest discomfort. No specific treatment. Repeat troponin also negative. No intercurrent chest discomfort. Consider GI etiology, trial of [id number] antacid while awaiting outpatient cardiology follow up. Advised to reduce dose of metoprolol to see if sinus bradycardia is improved, if that is related to his ongoing fatigue/malaise symptoms. Phone consultation with his chemist intern advised on Saturday during regular clinic hours. Stable, improved, home with . Return precautions discussed. Discharge Plan Departure Patient Disposition: Home Clinical Impression: Generalized weakness, Sinus bradycardia, Chest pain Instructions: DI for High Blood Pressure Activity Restrictions/Additional Instructions: 88-year-old male with history of hypertension, longstanding metoprolol 50 mg XL use, about 1 year ago had increased dosage from once daily to twice daily, no missed doses, recent low heart rate changes noted. No addition of IM medications that could affect heart rate, no extra doses of metoprolol reportedly taken. Heart rate was indeed in the 50s on EKG and on monitoring while in the emergency department. Consider decreased dose of your long-acting metoprolol from twice daily to just once in the morning for the next few days, to monitor your heart rate and also your fatigue/weakness symptoms. You had a brief episode of chest pain with on change repeat EKG. EKG and serial blood tests not suggestive of heart attack at this time, electrolytes unremarkable, no obvious fever, no obvious lab markers of infection, chest x-ray unremarkable. Recheck symptoms with your primary physician in the next 2-3 days, and/or your chemist intern, to review symptoms and heart rate in further chronic medication recommendations. Consider [id number] antacid awaiting outpatient cardiology follow up. Return earlier to this/nearest emergency department for any change worsening symptoms or any concerns prior Prescriptions: No Action metoprolol succinate 50 mg tablet extended release 24 hr 50 mg PO BID omeprazole 20 mg capsule,delayed release(DR/EC) 20 mg PO DAILY citalopram 10 mg tablet 10 mg PO DAILY fluticasone propion-salmeterol [Advair HFA] 230-21 mcg/actuation HFA aerosol inhaler 2 puff inhalation BID losartan 50 mg tablet 50 mg PO DAILY ATENOLOL (Tenormin) 25 mg PO Q DAY Qty: 0 Atorvastatin Calcium (Lipitor) PO Q DAY Qty: 0 ASPIRIN (Aspirin Low Dose) 81 mg PO Q DAY Qty: 0 ESCITALOPRAM OXALATE (Lexapro) 10 mg PO Q DAY Qty: 0 HYDROCHLOROTHIAZIDE (Hydrodiuril / Hctz) 25 mg PO Q DAY Qty: 0 [GLUCOSAMINE] 750 mg PO QDAY Qty: 0 [SAW PALMETTO] 320 mg PO QDAY Qty: 0 Referrals: Dunia Cosme PA-C [Physician Manager Of Engineering] - Stand Alone Forms: Patient Portal/API
[2023-10-12 12:14] LABS: Appearance Urine UA CLEAR; Bilirubin Urine UA NEGATIVE (NEGATIVE); Color Urine UA YELLOW; Glucose Urine UA NEGATIVE (Negative); Ketones Urine UA NEGATIVE (NEGATIVE); Leukocyte Esterase Urine UA NEGATIVE (NEGATIVE); Nitrite Urine UA NEGATIVE (Negative); Occult Blood Urine UA NEGATIVE (Negative); Protein Urine UA NEGATIVE (Negative)
[2023-10-12 12:19] LABS: Urine Volume 10mL (spun)
[2023-10-12 12:20] LABS: Bacteria Urine None Seen; Culture Indicated Urine Cult Not Indicated; RBC Urine None Seen (0-5/HPF); Squamous Epithelial Cell Urine None Seen (0-5/HPF); WBC Urine None Seen (0-5/HPF)
[2023-10-12 13:06] LABS: Troponin I < 0.012 ng/mL (0.01-0.034)
--- NOTE | 2023-10-12 13:30 | DI.CT.S_ITS ---
PROCEDURE: CT HEAD/BRAIN WO CON INDICATIONS: feels like he is going to pass out TECHNIQUE: Noncontrast 4.5 mm thick angled axial sections acquired from the foramen magnum to the vertex, with coronal and sagittal reformats. For radiation dose reduction, the following was used: automated exposure control, adjustment of mA and/or kV according to patient size. COMPARISON: None. FINDINGS: Image quality: Diagnostic. CSF spaces: Basal cisterns are patent. No extra-axial fluid collections. Ventricles are normal in size and shape. Brain: No midline shift. No intracranial masses or hemorrhage. Salgado-white matter interface is normal. Dense atherosclerotic vascular calcification in the cavernous segments of both internal carotid arteries. 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 Sinuses: Visualized sinuses and mastoids are clear. IMPRESSION: Moderate atrophy and white matter chronic ischemic change intracranial hemorrhage or mass effect Approved by: Sandeep Mendosa M.D. on 10/12/2023 at 13:39
--- NOTE | 2023-10-12 13:34 | EKG_ITS ---
[address] [address] Test Date: 2023-10-12 Pat Name: Ryan Arguelles Department: Room: Gender: Male [employer] Carrier: KASIA : 1935 Requested By: Order Number: [id number] Reading MD: Aakash Durand MD Measurements Intervals [place] Rate: 54 P: 66 MO: 200 QRS: 29 QRSD: 130 T: 6 QT: 492 QTc: 466 Interpretive Statements Sinus bradycardia Right bundle branch block NO SIGNIFICANT CHANGE FROM PRIOR TRACING Electronically Signed On 10-13-2023 9:26:36 PDT by Aakash Durand MD
[2023-10-12 16:13] LABS: D Dimer 360 ng/ml (<500)
[2023-10-12 17:36] LABS: Troponin I < 0.012 ng/mL (0.01-0.034)
== END 2023-10-12 17:57 | disposition home or self-care (01) ==
PROVIDERS: Emergency Provider Emergency Medicine; PCP Family Medicine
DX: R53.1 Weakness (principal); R00.1 Bradycardia, unspecified; R07.9 Chest pain, unspecified
CPT/HCPCS: 36415; 70450; 71045; 80053; 81001; 82550; 83690; 83735; 83880; 84484; 85025; 85379; 85610; 85730; 93005; 93010; 99284

== ENCOUNTER 2024-04-03 14:57 | Emergency (ER) | payer MEDICARE, SELFPAY ==
[2024-04-03 15:24] VITALS: BP 159/69; PULSE 60; RESP 20; TEMP 37; O2SAT 96; BMI 29.7
--- NOTE | 2024-04-03 16:43 | ED_ITS ---
HPI - Fall General Chief Complaint: Fall Stated Complaint: Fall, head injury, no blood thinners Time Seen by Provider: 04/03/24 16:42 Source: patient Mode of arrival: Ambulatory History of Present Illness HPI Narrative: 88-year-old male presents with his for a ground level fall that occurred in his garage, he lost his footing and fell backwards striking the back of his head. There were no precipitating events, and no loss of consciousness. He is denying any vision changes, any teeth pain, neck is a little achy but he would not call it pain per se. He is fallen in the past and he just feels this was another clumsy event. No nausea, vomiting, headache at this point does endorse some left ear fullness and he can hear a congestion or air type sound as well as his heartbeat. He is denying any vertiginous symptoms, he does wear hearing aids so he can not tell me for sure if he has had a change in his hearing. No other complaints, he does take baby aspirin 81 mg daily any did take 3 [id number] ibuprofen immediately following this event at home. All other systems are reviewed and are negative. Related Data Home Medications Medication Instructions Recorded Confirmed ASPIRIN (Aspirin Low Dose) 81 mg PO Q DAY ##0 11/19/06 ATENOLOL (Tenormin) 25 mg PO Q DAY ##0 11/19/06 Atorvastatin Calcium (Lipitor) mg PO Q DAY ##0 11/19/06 ESCITALOPRAM OXALATE (Lexapro) 10 mg PO Q DAY ##0 11/19/06 HYDROCHLOROTHIAZIDE (Hydrodiuril / 25 mg PO Q DAY ##0 11/19/06 Hctz) [GLUCOSAMINE] 750 mg PO QDAY ##0 11/19/06 [SAW PALMETTO] 320 mg PO QDAY ##0 11/19/06 citalopram 10 mg tablet 10 mg PO DAILY 09/13/23 09/13/23 fluticasone propionate 230 2 puff inhalation BID 09/13/23 09/13/23 mcg-salmeterol 21 mcg/actuation HFA inhaler (Advair HFA) losartan 50 mg tablet 50 mg PO DAILY 09/13/23 09/13/23 metoprolol succinate 50 mg 50 mg PO BID 09/13/23 09/13/23 tablet,extended release 24 hr omeprazole 20 mg capsule,delayed 20 mg PO DAILY 09/13/23 09/13/23 release Allergies Allergy/AdvReac Type Severity Reaction Status Date / Time No Known Drug Allergies Allergy Verified 10/12/23 10:37 Review of Systems Review of Systems Narrative: All other systems are reviewed and are negative. Patient History Social History Smoking Status: Never smoker Smoking Status: Never smoker alcohol intake frequency: 0-2 drinks per day Exam Initial Vital Signs Initial Vital Signs: Vital Signs Temperature 98.6 F 04/03/24 15:24 Pulse Rate 60 04/03/24 15:24 Respiratory Rate 20 04/03/24 15:24 Blood Pressure 159/69 H 04/03/24 15:24 Pulse Oximetry 96 04/03/24 15:24 Oxygen Delivery Method Room Air 04/03/24 15:24 Vital signs reviewed and are normal except for slight elevation in his systolic. Const General: cooperative, healthy appearing, comfortable, well developed, well groomed and No acute distress Other: Ambulatory, pleasantly conversing, alert and oriented x4, no distress. HENMT Head: No abrasion, No Du's sign, hematoma (Occipital region measuring approximately 4 in x 4 in.) and scalp tenderness (Overlying the hematoma. No other focal tenderness of the skull.) Ears: external ears normal, TM's normal bilaterally, EAC's normal, mastoids normal and no periauricular adenopathy Nose: external nose normal, nares normal, nasal mucous membranes and turbinates normal, septum normal and No epistaxis Face and sinus: normal facial exam, sinuses nontender, face symmetric, no abrasions and no crepitus Mouth: oral mucosae normal, lip normal, tongue normal, salivary ducts normal, oropharynx normal and moist mucous membranes Teeth and gingiva: dentition normal and gingiva normal Throat: posterior oropharynx normal, tonsils normal and uvula midline HENMT Other: No pre or posterior auricular tenderness, no mastoid tenderness, no swelling, no discoloration or breaks in the skin. Ear canals are dry. No drainage from the nose. Eyes General: Yes appearance normal, both eyes and all related structures Visual Alonzo: normal visual alonzo by confrontation Alignment and Position: alignment normal and position normal Periorbital: periorbital findings normal Eyelids: eyelids normal Sclera: sclerae normal Pupils: PERRL EOM: EOM intact bilaterally Neck Neck: normal visual inspection, full ROM, no meningeal signs and supple Lymphatic: No lymphadenopathy Other: No focal bony midline tenderness of the cervical spine, no step-off or deformity. Mild tenderness in the paraspinous tissues and upper trapezium without guarding. Resp Effort & Inspection: normal respiratory effort and able to speak in complete sentences Auscultation: clear to auscultation bilaterally, no rales, no rhonchi and no wheezes Cardio Rate: regular rate Rhythm: regular rhythm Back/Spine/Pelvis Back: normal to inspection and No CVA tenderness Skin General: no rashes or lesions noted, elasticity normal and turgor normal Other: Purple discoloration overlying the hematoma of his occipital scalp. Neuro Cranial Nerves: CN's II-XI intact bilaterally and PERRL Gait: normal gait Coordination: [id number] test normal, Romberg test normal and tandem gait normal Course Orders Ordered: ED Orders 04/03/24 16:56 CT cervical spine wo con Stat CT head/brain wo con Stat Consultations Consultation #1: Discussed the case and the CT findings with ER attending Dr. Viveros. [facility] called at 6:00 p.m. for consultation, awaiting callback. I spoke with [facility] triage nurse Terese at 6:30pm, conveying the patient's presentation and results, she stated she would contact either neurosurgery or Otolaryngology and call us back. 7:35pm Discussed the case with Dr. Arreola at [facility] Otolaryngology who advised CT was a limited study as the slices were quite wide but he did not see any evidence of fracture, he recommended follow up within 1 week with Otolaryngology and a hearing test within 1 month, the concern for that underwater sensation in the left ear is the fluid can either be blood or CSF leak. He recommended CSF precautions so no straining, no blowing of the nose, use a stool softener avoid constipation, heavy lifting. He did not appreciate any ossicle dislocation. 7:50pm Neurosurgery was then consulted immediately following and per the [facility] nurse, Dr. Ryan Jimenez would like to see this patient re-evaluated at [facility] Emergency Department tonight to take a closer look and re-image. Patient remains NPO, he will be transferred via ALS ambulance, patient agrees to the transfer. Vital Signs Vital signs: Vital Signs - 8 hr 04/03/24 15:24 04/03/24 18:41 Temperature 98.6 F 97.7 F Pulse Rate 60 59 L Respiratory Rate 20 15 Blood Pressure 159/69 H 168/79 H Pulse Oximetry 96 94 Oxygen Delivery Method Room Air Room Air MDM - Fall Imaging Data CT scan - head: My Impression: Deferred to radiologist's interpretation below, phoned by Dr. Stinson to review these positive findings. Radiologist's Impression: PROCEDURE: CT HEAD/BRAIN WO CON INDICATIONS: Mild multilevel degenerative changes of the lumbar spine. With mild dextrocurvature TECHNIQUE: Noncontrast 4.5 mm thick angled axial sections acquired from the foramen magnum to the vertex, with coronal and sagittal reformats. For radiation dose reduction, the following was used: automated exposure control, adjustment of mA and/or kV according to patient size. COMPARISON: [facility], CT, CT HEAD/BRAIN WO CON, 10/12/2023, 13:42. FINDINGS: Image quality: Diagnostic. CSF spaces: Basal cisterns are patent. No extra-axial fluid collections. The ventricles are symmetric in size and shape. Brain: Pneumocephalus is present. No intracranial bleeds or masses. There is cerebral volume loss for age, with resultant ventricular and sulcal prominence. There are periventricular and deep white matter chronic small vessel ischemic changes. There is intracranial internal carotid artery atherosclerosis. Skull and face: Small left parietal scalp subcutaneous stranding. Calvarium and visualized facial bones appear intact, without suspicious lesions. Sinuses: Mild dextrocurvature. IMPRESSION: No definite acute intracranial hemorrhage is identified. Pneumocephalus is present. No definite fracture is identified, however there is a larger focus of gas posterior to the left temporal bone and mild fluid within the left mastoid air cells, concerning for fracture involving the left mastoid air cells. Findings were communicated to the NO Zavala at the time of dictation. Dictated by: Shubham Stinson M.D. on 04/03/2024 at 17:22 Approved by: Shubham Stinson M.D. on 04/03/2024 at 17:32 CT - cervical spine: Radiologist's Impression: PROCEDURE: CT CERVICAL SPINE WO CON INDICATIONS: Fall, striking back of head. On ASA. TECHNIQUE: Noncontrast 3 mm thick sections acquired from the skull base to the T4 level. Sagittal and coronal reformats were then constructed. For radiation dose reduction, the following was used: automated exposure control, adjustment of mA and/or kV according to patient size. COMPARISON: None. FINDINGS: Image quality: Excellent. Bones: No fractures or dislocations. Degenerative endplate changes are noted throughout cervical spine. Mild central canal stenosis at C5-6 level is seen. Visualized superior ribs are intact. Soft tissues: Prevertebral soft tissues are normal in thickness. No paravertebral hematomas. No apical pneumothoraces. There is pneumocephalus. IMPRESSION: No acute cervical spine fracture or dislocation. 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 Pneumocephalus, please correlate with CT of brain findings. Dictated by: Mich Soria M.D. on 04/03/2024 at 17:20 Approved by: Mich Soria M.D. on 04/03/2024 at 17:21 [facility] Narrative Medical decision making narrative: This pleasant 88-year-old male unfortunately had a fall earlier today striking the back of his head. There were no precipitating events, he did sustain a occipital hematoma, and endorsed fullness in his left ear or an underwater sensation and he could hear his heartbeat. Subsequent CT did show pneumocephalus. No definite fracture is identified, however there is a larger focus of gas posterior to the left temporal bone and mild fluid within the left mastoid air cells, concerning for fracture involving the left mastoid air cells. Consultation was obtained via [facility] with otolaryngology Dr[address] Arreola who was able to provide recommendations from my ?ear standpoint? and recommended follow up within 1 week as well as a hearing test within 1 month. He recommended CSF leak precautions, no straining, no blowing of the nose, and obviously to seek medical attention immediately if anything changed. He deferred the other findings to neurosurgery consultation. A second consultation was performed with Neurosurgery, Dr. Ryan Jimenez, who advised he should be transferred tonight for re-evaluation by neurosurgery and re-imaging. Patient will be transferred by [facility] ambulance tonight, the patient is in agreement. Patient's vital signs remained stable, he has had no neurologic changes whatsoever, he still has the left ear fullness but it has not changed, the only new finding is a slight nasal drip, he was reexamined and there was no obvious fluid for bloating, he states he does have seasonal allergies and sometimes has nasal drip. Obviously there is concern for CSF and he is being transferred to a higher level of care. Discharge Plan Departure Patient Disposition: [facility] Clinical Impression: Pneumocephalus, traumatic, Hematoma of occipital region of scalp Prescriptions: No Action metoprolol succinate 50 mg tablet extended release 24 hr 50 mg PO BID omeprazole 20 mg capsule,delayed release(DR/EC) 20 mg PO DAILY citalopram 10 mg tablet 10 mg PO DAILY fluticasone propion-salmeterol [Advair HFA] 230-21 mcg/actuation HFA aerosol inhaler 2 puff inhalation BID losartan 50 mg tablet 50 mg PO DAILY ATENOLOL (Tenormin) 25 mg PO Q DAY Qty: 0 Atorvastatin Calcium (Lipitor) PO Q DAY Qty: 0 ASPIRIN (Aspirin Low Dose) 81 mg PO Q DAY Qty: 0 ESCITALOPRAM OXALATE (Lexapro) 10 mg PO Q DAY Qty: 0 HYDROCHLOROTHIAZIDE (Hydrodiuril / Hctz) 25 mg PO Q DAY Qty: 0 [GLUCOSAMINE] 750 mg PO QDAY Qty: 0 [SAW PALMETTO] 320 mg PO QDAY Qty: 0 Referrals: Dank De La Torre MD [Primary Care Provider] -
--- NOTE | 2024-04-03 16:56 | DI.CT.S_ITS ---
PROCEDURE: CT CERVICAL SPINE WO CON INDICATIONS: Fall, striking back of head. On ASA. TECHNIQUE: Noncontrast 3 mm thick sections acquired from the skull base to the T4 level. Sagittal and coronal reformats were then constructed. For radiation dose reduction, the following was used: automated exposure control, adjustment of mA and/or kV according to patient size. COMPARISON: None. FINDINGS: Image quality: Excellent. Bones: No fractures or dislocations. Degenerative endplate changes are noted throughout cervical spine. Mild central canal stenosis at C5-6 level is seen. Visualized superior ribs are intact. Soft tissues: Prevertebral soft tissues are normal in thickness. No paravertebral hematomas. No apical pneumothoraces. There is pneumocephalus. IMPRESSION: No acute cervical spine fracture or dislocation. 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 Pneumocephalus, please correlate with CT of brain findings. Dictated by: Mich Soria M.D. on 04/03/2024 at 17:20 Approved by: Mich Soria M.D. on 04/03/2024 at 17:21
--- NOTE | 2024-04-03 16:56 | DI.CT.S_ITS ---
PROCEDURE: CT HEAD/BRAIN WO CON INDICATIONS: Mild multilevel degenerative changes of the lumbar spine. With mild dextrocurvature TECHNIQUE: Noncontrast 4.5 mm thick angled axial sections acquired from the foramen magnum to the vertex, with coronal and sagittal reformats. For radiation dose reduction, the following was used: automated exposure control, adjustment of mA and/or kV according to patient size. COMPARISON: [facility], CT, CT HEAD/BRAIN WO CON, 10/12/2023, 13:42. FINDINGS: Image quality: Diagnostic. CSF spaces: Basal cisterns are patent. No extra-axial fluid collections. The ventricles are symmetric in size and shape. Brain: Pneumocephalus is present. No intracranial bleeds or masses. There is cerebral volume loss for age, with resultant ventricular and sulcal prominence. There are periventricular and deep white matter chronic small vessel ischemic changes. There is intracranial internal carotid artery atherosclerosis. Skull and face: Small left parietal scalp subcutaneous stranding. Calvarium and visualized facial bones appear intact, without suspicious lesions. Sinuses: Mild dextrocurvature. IMPRESSION: No definite acute intracranial hemorrhage is identified. Pneumocephalus is present. No definite fracture is identified, however there is a larger focus of gas posterior to the left temporal bone and mild fluid within the left mastoid air cells, concerning for fracture involving the left mastoid air cells. Findings were communicated to the NO Zavala at the time of dictation. Dictated by: Shubham Stinson M.D. on 04/03/2024 at 17:22 Approved by: Shubham Stinson M.D. on 04/03/2024 at 17:32
[2024-04-03 18:41] VITALS: BP 168/79; PULSE 59; RESP 15; TEMP 36.5; O2SAT 94
--- NOTE | 2024-04-03 19:57 | PC.NURSE ---
Assumed cares at this time. Pt awake and alert. Able to transfer self to [facility]. Denies pain at this time.
[2024-04-03 20:51] VITALS: BP 135/78; PULSE 65; RESP 18; TEMP 36.9; O2SAT 98
== END 2024-04-03 20:53 | disposition short-term general hospital (02) ==
PROVIDERS: Emergency Provider Physician Assistant Medical; PCP Family Medicine
DX: S06.890A Other specified intracranial injury without loss of consciousness, initial encounter (principal); G93.89 Other specified disorders of brain; S00.03XA Contusion of scalp, initial encounter; W18.30XA Fall on same level, unspecified, initial encounter; Z91.81 History of falling; Y92.015 Private garage of single-family (private) house as the place of occurrence of the external cause; Z79.82 Long term (current) use of aspirin
CPT/HCPCS: 36415; 70450; 72125; 99283; 99285